=== PATIENT | male | born 1990 | race Caucasian/White ===

== ENCOUNTER 2016-10-15 13:15 | Emergency (ER) | payer SELFPAY ==
[~2016-10-15] VITALS: Ht 188 cm; Wt 127.0 kg
--- NOTE | 2016-10-15 15:32 | ED Back Pain ---
General Chief Complaint: Back Problems Stated Complaint: LOW BACK PAIN Nursing Triage Note: PT C/O INTERMITTENT SHARP LEFT LOW BACK PAIN X 1.5MONTHS. Nursing Sepsis Screen: No Definite Risk Source of Information: Patient Exam Limitations: No Limitations History of Present Illness Time Seen by Provider: 15:30 Initial Comments 26 yo male patient presents to the ED with c/o intermittent sharp pains in the left low back for the last 1.5 months. Patient reports episodes only last a few seconds. Denies numbness, tingling, abdominal pain, dysuria, frequency, hematuria. 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 Denies known injury. States he did have to see a chiropractor back home for low back pain. Denies pain being related to movement or activity. Location: Paraspinous Muscles (left low back ) Timing/Duration: Intermittent (intermittent and sharp), Other (1.5 mo) Pain/Injury Location: Back Radiation: Other (denies radiation) Method of Injury: Unknown Modifying Factors: Improves With Other (pain last only a few seconds and is self-limited.) Associated Symptoms: muscle spasmsNo fever, No weakness, No numbness in legs/ feet, No tingling in legs/feet, No sensory/motor loss, lower back painNo loss of bladder control, No loss of bowel control Allergies and Home Medications Allergies Coded Allergies: No Known Drug Allergies (Unverified , 10/15/16) Home Medications Cyclobenzaprine HCl 10 Mg Tablet #14 10 MG PO Q8H PRN PRN SPASMS Prescribed by: ROJELIO COELHO on 10/15/16 1548 Prednisone 20 Mg Tab #10 40 MG PO DAILY Prescribed by: ROJELIO COELHO on 10/15/16 1548 Constitutional: No chills, No fever, No malaise Respiratory: no symptoms reported Cardiovascular: no symptoms reported Gastrointestinal: No abdominal pain, No constipation, No diarrhea, No nausea, No vomiting Genitourinary: No decreased output, No dysuria, No frequency, No hematuria, No pain Musculoskeletal: see HPI back pain muscle pain Skin: no symptoms reported Psychiatric/Neurological: Denies Numbness, Denies Paresthesia, Denies Tingling , Denies Weakness All Other Systems Reviewed Negative Unless Noted: Yes (Negative excepted noted.) Past Xvdhpop-Lezlgp-Zrdldv Hx Patient Social History Alcohol Use: Rarely Uses Recreational Drug Use: Yes Drug of Choice: PAST DRUG USE Smoking Status: Former Smoker Type Used: Cigarettes Recent Foreign Travel: No Contact w/Someone Who Travel: No Recent Infectious Disease Expo: No Recent Hopitalizations: No Seasonal Allergies Seasonal Allergies: No Surgeries HX Surgeries: Yes Surgeries: Appendectomy Respiratory Hx Respiratory Disorders: No Cardiovascular Hx Cardiac Disorders: No Neurological Hx Neurological Disorders: No Genitourinary Hx Genitourinary Disorders: No Gastrointestinal Hx Gastrointestinal Disorders: No HEENT HX ENT Disorders: No Reviewed Nursing Assessment Reviewed/Agree w Nursing PMH: Yes Family Medical History Significant Family History: No Pertinent Family Hx Physical Exam Vital Signs Vital Sign - Last 12Hours 10/15/16 13:57 Temp 98.9 Pulse 62 Resp 16 B/P 156/87 Capillary Refill : Less Than 3 Seconds General Appearance: No Apparent Distress WD/WN Cardiovascular: Regular Rate, Rhythm No Murmur Normal Peripheral Pulses Respiratory: Lungs Clear Normal Breath Sounds No Respiratory Distress Back: No CVA Tenderness No Vertebral TendernessNo Decreased Range of Motion, Muscle Spasm (left low back in the L4-L5 location with mild ttp over the muscle. ) Extremity: Normal Capillary Refill Normal Inspection Normal Range of Motion Non Tender Neurologic/Psychiatric: Alert Oriented x3 No Motor/Sensory Deficits Normal Mood/Affect Skin: Normal Color Warm/Dry Progress/Results/Core Measures Results/Orders Vital Signs/I&O Vital Sign - Last 12Hours 10/15/16 13:57 Temp 98.9 Pulse 62 Resp 16 B/P 156/87 Blood Pressure Mean: 110 Departure Communication Progress Notes Patient seen and evaluated. Plan for discharge to home with oral prednisone and cyclobenzaprine. Patient instructed to use Tylenol and ibuprofen over-the- counter for pain. Impression Impression: Primary Impression: Strain of muscle, fascia and tendon of lower back, initial encounter Disposition: HOME, SELF-CARE Condition: Improved Departure-Patient Inst. Decision time for Depature: 15:47 Referrals: NO,LOCAL PHYSICIAN (PCP) Primary Care Physician Patient Instructions: Lumbar Muscle Strain (DC) Add. Discharge Instructions: All discharge instructions reviewed with patient and/or family. Voiced understanding. Medications as instructed. Tylenol extra strength over-the- counter as directed for pain. Ibuprofen 800 mg by mouth every 8 hours as needed for pain. Ice packs or heating pads as needed for pain and muscle spasm. Consider seeing her chiropractor choice for recheck and adjustment. Consider massage therapy. Follow-up with your family practitioner of choice or [facility] for recheck if no improvement in symptoms in 7-10 days. Return to the emergency department for worsened pain, numbness, weakness , bowel incontinence, bladder incontinence, or any other concerns. Scripts Cyclobenzaprine HCl 10 Mg [id number] Mg PO Q8H PRN SPASMS #14 TAB Ref 0 Prov:ROJELIO COELHO 10/15/16 Prednisone 20 Mg Tab40 Mg PO DAILY #10 TAB Ref 0 Prov:ROJELIO COELHO 10/15/16 Work/School Note: [employer] ROJELIO COELHO Oct 15, 2016 15:32
[2016-10-15] MEDS ORDERED: PRD20T PO (15:48)
[2016-10-15] MEDS ORDERED: CYCL10TA9 PO (15:48)
[2016-10-15 16:00] VITALS: BP 156/87
== END 2016-10-15 16:04 | disposition home or self-care (01) ==
LOC: ER 13:18
DX: S39.012A Strain of muscle, fascia and tendon of lower back, initial encounter (principal); X58.XXXA Exposure to other specified factors, initial encounter; Y99.8 Other external cause status
CPT/HCPCS: 99281

== ENCOUNTER 2016-11-21 21:56 | Emergency (ER) | payer SELFPAY ==
[~2016-11-21] VITALS: Ht 182.9 cm; Wt 149.7 kg
[~2016-11-21 21:56] MED LIST: CYCL10TA9 PO; PRD20T PO
[2016-11-21] MEDS ORDERED: PANTOPRAZOLE 40 MG/10 ML (PROTONIX) VIAL IV ONE (22:15)
--- NOTE | 2016-11-21 22:21 | ED GI ---
General Chief Complaint: Abdominal/GI Problems Stated Complaint: STOMACH PAIN/BURNING/CHEST PAIN Nursing Triage Note: PT TO ED 6 FOR C/O BURNING SENSATION TO ABD ET CHEST X2WKS, WORSE TONIGHT. REPORTS WAS SEEN AT [facility] FOR C/O, WAS PRESCRIBED ZANTAC BUT DENIES IMPROVEMENT Sepsis Screen: No Definite Risk Source of Information: Patient History of Present Illness Time Seen By Provider: 22:05 Initial Comments C/O EPIGASTRIC BURNING X 2 WEEKS--IS CONSTANT, NOTHING WORSENS OR IMPROVES SYMPTOMS C/O ONGOING NAUSEA AND DIARRHEA FOR A COUPLE OF YEARS--WITH CERTAIN FOODS NO FEVER NO VOMITING SEEN AT [facility] 4 DAYS AGO AND GIVEN RX FOR ZANTAC STATES THE LAST 2 DAYS THE BURNING IS NOW IN HIS CHEST WELL HAD SIMILAR A COUPLE OF YEARS AGO AND WAS SEEN AT AN ER IN [place], TESTS ALL REPORTEDLY NORMAL AND NO RX GIVEN. PT DID NOT FOLLOW UP WITH ANYONE PT STATES HE HAS TESTED + FOR HEPATITIS B AND C, BUT WAS BEING RETESTED AND DOES NOT HAVE THOSE RESULTS BACK YET. PCP: [facility] Allergies and Home Medications Allergies Coded Allergies: No Known Drug Allergies (Unverified , 10/15/16) Home Medications Cyclobenzaprine HCl 10 Mg Tablet, 10 MG PO Q8H PRN for SPASMS, #14 Ref 0 Prescribed by: ROJELIO COELHO on 10/15/16 1548 Pantoprazole Sodium 40 Mg Tablet.dr, 40 MG PO DAILY, #15 Prescribed by: AMY RUVALCABA on 11/21/167 Prednisone 20 Mg Tab, 40 MG PO DAILY, #10 Ref 0 Prescribed by: ROJELIO COELHO on 10/15/16 1548 Sucralfate 1 Gm/10 Ml Oral.susp, 1 GM PO QID AC AND HS, #400 Prescribed by: AMY RUVALCABA on 11/21/16 2317 Review of Systems Constitutional: no symptoms reported Respiratory: No Symptoms Reported Cardiovascular: Chest Pain, Denies Edema, Denies Lightheadedness, Denies Palpitations, Denies Syncope Gastrointestinal: See HPI, Abdominal Pain, Diarrhea, Nausea, Denies Poor Appetite, Denies Poor Fluid Intake, Denies Vomiting Genitourinary: No Symptoms Reported Musculoskeletal: no symptoms reported Skin: no symptoms reported Psychiatric/Neurological: No Symptoms Reported Endocrine: No Symptoms Reported Hematologic/Lymphatic: No Symptoms Reported Past Svrkzpc-Xgongf-Cvrppq Hx Patient Social History Alcohol Use: Past History (HISTORY OF MODERATE TO HEAVY USE, STATES NONE X 5 MONTHS, PER PT ON 11/21/16) Recreational Drug Use: Yes (+ IV DRUG USE--"EVERYTHING" --STATES NONE FOR A YEAR, PER PT ON 11/21/16) Drug of Choice: PAST DRUG USE Smoking Status: Former Smoker (1 PPD, QUIT 09/2016) Type Used: Cigarettes Recent Foreign Travel: No Contact w/Someone Who Travel: No Recent Infectious Disease Expo: No Recent Hopitalizations: No Seasonal Allergies Seasonal Allergies: No Surgeries HX Surgeries: Yes Surgeries: Appendectomy Respiratory Hx Respiratory Disorders: No Cardiovascular Hx Cardiac Disorders: Yes Cardiac Disorders: High Cholesterol Neurological Hx Neurological Disorders: No Genitourinary Hx Genitourinary Disorders: No Gastrointestinal Hx Gastrointestinal Disorders: Yes (TESTED + FOR HEPATITIS B AND C) Musculoskeletal Hx Musculoskeletal Disorders: No Endocrine Hx Endocrine Disorders: No HEENT HX ENT Disorders: No Cancer Hx Cancer: No Psychosocial Hx Psychiatric Problems: No Integumentary HX Skin/Integumentary Disorder: No Blood Transfusions Hx Blood Disorders: No Physical Exam Vital Signs VS - Last 72 Hours, by Label 11/21/16 22:00 Temp 97.8 Pulse 72 Resp 20 B/P (MAP) 160/83 Pulse Ox 100 O2 Delivery Room Air Capillary Refill : Less Than 3 Seconds General Appearance: WD/WN, no apparent distress, obese, other (WALKS UPRIGHT AND MOVES WITHOUT DIFFICULTY) HEENT: PERRL/EOMI, No scleral icterus (R), No scleral icterus (L) Neck: normal inspection Respiratory: chest non-tender, normal breath sounds, no respiratory distress, no accessory muscle use Cardiovascular: regular rate, rhythm, no edema, no JVD, no murmur Gastrointestinal: normal bowel sounds, non tender, soft, no organomegaly, no pulsatile mass, No distended, No hernia, No mass Extremities: normal inspection Back: no CVA tenderness Neurologic/Psychiatric: 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 nml as tested, no motor/sensory deficits, alert, normal mood/affect, oriented x 3 Skin: normal color, warm/dry Progress/Results/Core Measures Results/Orders Lab Results Laboratory Tests Test 11/21/16 22:16 11/21/16 22:24 Range/Units Urine Color YELLOW Urine Clarity SLIGHTLY CLOUDY Urine pH 6 5-9 Urine Specific Sloan 1.025 H 1.016-1.022 Urine Protein NEGATIVE NEGATIVE Urine Glucose (UA) NEGATIVE NEGATIVE Urine Ketones NEGATIVE NEGATIVE Urine Nitrite NEGATIVE NEGATIVE Urine Bilirubin NEGATIVE NEGATIVE Urine Urobilinogen NORMAL NORMAL MG/DL Urine Leukocyte Esterase NEGATIVE NEGATIVE Urine RBC (Auto) NEGATIVE NEGATIVE Urine RBC NONE /HPF Urine WBC 0-2 /HPF Urine Crystals NONE /LPF Urine Bacteria NEGATIVE /HPF Urine Casts NONE /LPF Urine Mucus NEGATIVE /LPF Urine Culture Indicated NO Urine Opiates Screen NEGATIVE NEGATIVE Urine Oxycodone Screen NEGATIVE NEGATIVE Urine Methadone Screen NEGATIVE NEGATIVE Urine Propoxyphene Screen NEGATIVE NEGATIVE Urine Barbiturates Screen NEGATIVE NEGATIVE Ur Tricyclic Antidepressants Screen NEGATIVE NEGATIVE Urine Phencyclidine Screen NEGATIVE NEGATIVE Urine Amphetamines Screen NEGATIVE NEGATIVE Urine Methamphetamines Screen NEGATIVE NEGATIVE Urine Benzodiazepines Screen NEGATIVE NEGATIVE Urine Cocaine Screen NEGATIVE NEGATIVE Urine Cannabinoids Screen NEGATIVE NEGATIVE White Blood Count 6.7 4.3-11.0 10^3/uL Red Blood Count 4.97 4.35-5.85 10^6/uL Hemoglobin 14.9 13.3-17.7 G/DL Hematocrit 42 40-54 % Mean Corpuscular Volume 85 80-99 FL Mean Corpuscular Hemoglobin 30 25-34 PG Mean Corpuscular Hemoglobin Concent 35 32-36 G/DL Red Cell Distribution Width 12.6 10.0-14.5 % Platelet Count 185 130-400 10^3/uL Mean Platelet Volume 10.6 H 7.4-10.4 FL Neutrophils (%) (Auto) 59 42-75 % Lymphocytes (%) (Auto) 29 12-44 % Monocytes (%) (Auto) 8 0-12 % Eosinophils (%) (Auto) 2 0-10 % Basophils (%) (Auto) 1 0-10 % Neutrophils # (Auto) 4.0 1.8-7.8 X 10^3 Lymphocytes # (Auto) 2.0 1.0-4.0 X 10^3 Monocytes # (Auto) 0.6 0.0-1.0 X 10^3 Eosinophils # (Auto) 0.2 0.0-0.3 10^3/uL Basophils # (Auto) 0.0 0.0-0.1 10^3/uL Sodium Level 141 135-145 MMOL/L Potassium Level 4.1 3.6-5.0 MMOL/L Chloride Level 108 H 98-107 MMOL/L Carbon Dioxide Level 21 21-32 MMOL/L Anion Gap 12 5-14 MMOL/L Blood Urea Nitrogen 18 7-18 MG/DL Creatinine 0.82 0.60-1.30 MG/DL Estimat Glomerular Filtration Rate > 60 BUN/Creatinine Ratio 22 Glucose Level 106 H 70-105 MG/DL Calcium Level 9.2 8.5-10.1 MG/DL Total Bilirubin 0.5 0.1-1.0 MG/DL Aspartate Amino Transf (AST/SGOT) 22 5-34 U/L Alanine Aminotransferase (ALT/SGPT) 37 0-55 U/L Alkaline Phosphatase 62 40-136 U/L Total Protein 6.6 6.4-8.2 G/DL Albumin 4.4 3.2-4.5 G/DL Amylase Level 59 25-125 U/L Lipase 15 8-78 U/L My Orders Orders - AMY RUVALCABA DO Saline Lock/Iv-Start (11/21/16 22:14) Ct Abdomen/Pelvis W (11/21/16 22:14) Amylase (11/21/16 22:14) Cbc With Automated Diff (11/21/16 22:14) Comprehensive Metabolic Panel (11/21/16 22:14) Drug Screen Stat (Urine) (11/21/16 22:14) Lipase (11/21/16 22:14) Ua Culture If Indicated (11/21/16 22:14) Pantoprazole Injection (Protonix Injecti (11/21/16 22:15) Iohexol Injection (Omnipaque 350 Mg/Ml 1 (11/21/16 23:00) Ns (Ivpb) (Sodium Chloride 0.9% Ivpb Bag (11/21/16 23:00) Medications Given in ED Current Medications Medications Dose Ordered Sig/Jacquie Route Start Time Stop Time Status Last Admin Dose Admin Iohexol 100 ml ONCE ONCE IV 11/21/16 23:00 11/21/16 23:01 DC 11/21/16 22:48 100 ML Pantoprazole 40 mg ONCE ONCE IV 11/21/16 22:15 11/21/16 22:16 DC 11/21/16 22:28 40 MG Sodium Chloride 100 ml ONCE ONCE IV 11/21/16 23:00 11/21/16 23:01 DC 11/21/16 22:48 80 ML Vital Signs/I&O Vital Sign - Last 12Hours 11/21/16 22:00 Temp 97.8 Pulse 72 Resp 20 B/P (MAP) 160/83 Pulse Ox 100 O2 Delivery Room Air Blood Pressure Mean: 108 Diagnostic Imaging Comments ABDOMEN/PELVIS--NO ACUTE PROCESS, PER [facility] VIA FAX @ 3114 Reviewed: Reviewed by Me Departure Impression Impression: Primary Impression: Epigastric abdominal pain Additional Impression: POSSIBLE GERD Disposition: HOME, SELF-CARE Condition: Stable Departure-Patient Inst. Referrals: [facility] (PCP/Family) Primary Care Physician Patient Instructions: Acid Reflux (Gastroesophageal Reflux Disease), Adult (DC) Add. Discharge Instructions: CLEAR LIQUIDS--WATER, BROTH, JELLO, GATORADE BRATS DIET--BANANAS, RICE, APPLESAUCE, TOAST, SALTINES FOLLOW UP WITH [facility] NEXT WEEK FOR FURTHER CARE All discharge instructions reviewed with patient and/or family. Voiced understanding. Scripts Sucralfate (Carafate) 1 Gm/10 Ml Oral.susp 1 GM PO QID AC AND HS, #400 ML Prov: AMY RUVALCABA DO 11/21/16 Pantoprazole Sodium (Protonix) 40 Mg Tablet.dr 40 MG PO DAILY, #15 TAB Prov: AMY RUVALCABA DO 11/21/16 AMY RUVALCABA DO Nov 21, 2016 22:21
[2016-11-21 22:22] LABS: BILIRUBIN,URINE NEGATIVE (NEGATIVE); KETONES,URINE NEGATIVE (NEGATIVE); LEUKOCYTE ESTERASE ,URINE NEGATIVE (NEGATIVE); NITRITE,URINE NEGATIVE (NEGATIVE); PH,URINE 6 (5-9); PROTEIN,URINE NEGATIVE (NEGATIVE); UROBILINOGEN,URINE NORMAL (NORMAL)
[2016-11-21 22:34] LABS: BASOPHILS % (AUTO) 1 % (0-10); EOSINOPHILS # (AUTO) 0.2 10^3/uL (0.0-0.3); EOSINOPHILS % (AUTO) 2 % (0-10); LYMPHOCYTES % (AUTO) 29 % (12-44); MEAN CORPUSCULAR HEMOGLOBIN 30 PG (25-34); MEAN CORPUSCULAR HGB CONC 35 G/DL (32-36); MEAN CORPUSCULAR VOLUME 85 FL (80-99); MEAN PLATELET VOLUME 10.6 FL (7.4-10.4); MONOCYTES # (AUTO) 0.6 X 10^3 (0.0-1.0); MONOCYTES % (AUTO) 8 % (0-12); NEUTROPHILS % (AUTO) 59 % (42-75); PLATELET COUNT 185 10^3/uL (130-400); RED BLOOD COUNT 4.97 10^6/uL (4.35-5.85); RED CELL DISTRIBUTION WIDTH 12.6 % (10.0-14.5); WHITE BLOOD COUNT 6.7 10^3/uL (4.3-11.0)
[2016-11-21 22:37] LABS: WBC,URINE 0-2 /HPF
[2016-11-21 22:50] LABS: ALANINE AMINOTRANSFERASE 37 U/L (0-55); ALBUMIN 4.4 G/DL (3.2-4.5); AMYLASE 59 U/L (25-125); ANION GAP 12 MMOL/L (5-14); ASPARTATE AMINO TRANSFERASE 22 U/L (5-34); BILIRUBIN,TOTAL 0.5 MG/DL (0.1-1.0); BLOOD UREA NITROGEN 18 MG/DL (7-18); BUN/CREATININE RATIO 22; CALCIUM 9.2 MG/DL (8.5-10.1); CARBON DIOXIDE 21 MMOL/L (21-32); CHLORIDE 108 MMOL/L (98-107); CREATININE SERUM 0.82 MG/DL (0.60-1.30); GFR ESTIMATED > 60; GLUCOSE 106 MG/DL (70-105); LIPASE 15 U/L (8-78); POTASSIUM 4.1 MMOL/L (3.6-5.0); SODIUM 141 MMOL/L (135-145); TOTAL PROTEIN 6.6 G/DL (6.4-8.2)
[2016-11-21] MEDS ORDERED: IOHEXOL 350 MG/ML 100 ML (OMNIPAQUE 350) VIAL IV ONE (23:00)
[2016-11-21] MEDS ORDERED: NS 100 ML (IVPB) BAG IV ONE (23:00)
[2016-11-21] MEDS ORDERED: SUCR1ORA5 PO (23:17)
[2016-11-21] MEDS ORDERED: PANT40TA2 PO (23:17)
[2016-11-21 23:25] VITALS: BP 0/0
--- NOTE | 2016-11-22 07:19 | Diagnostic Imaging Report ---
PROCEDURE: CT abdomen and pelvis with contrast. TECHNIQUE: Multiple contiguous axial images were obtained through the abdomen and pelvis after administration of intravenous contrast. INDICATION: Complains of burning sensation in stomach previous appendectomy. Comparison studies: None Contrast: 100 cc Omnipaque 350 was given intravenously. Findings: The lung bases are clear. There is diffuse fatty infiltration of liver with no focal findings. The gallbladder, spleen, pancreas, adrenal glands and kidneys are normal. No hiatal hernia is present. No inflammatory changes are seen around the duodenum. The appendix is absent. The bowel loops appear normal. There is no ascites, free air or abnormal adenopathy. Urinary bladder and prostate gland are normal. No hernias are present. The osseous structures are normal. IMPRESSION: Normal CT scan of the abdomen and pelvis. Dictated by: Dictated on workstation # [id number]
--- OUTSIDE RECORDS SUMMARY | 2016-11-25 05:21 | XMS REPORT | Continuity of Care Document ---
Author Author [facility] Organization [facility] Address Unknown Phone Unavailable Care Team Providers Care Maintainer Plant Name Role Phone PCP Unavailable Source Comments Some departments are not documenting in the electronic medical record. 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
== END 2016-11-21 23:25 | disposition home or self-care (01) ==
LOC: EDUNIT# 21:56 → ER 21:57
DX: R10.13 Epigastric pain (principal); Z87.891 Personal history of nicotine dependence
CPT/HCPCS: 36415; 74177; 80053; 80306; 81000; 82150; 83690; 85025; 96365

== ENCOUNTER → 2016-12-01 | Emergency (ER) | payer SELFPAY ==
[~2016-12-01] VITALS: Ht 188 cm; Wt 149.7 kg
[~2016-12-01] MED LIST changes: +PANT40TA2 PO; +SUCR1ORA5 PO
--- NOTE | 2016-12-01 09:37 | ED EENT ---
History of Present Illness General Chief Complaint: Dental Problems/Pain Stated Complaint: BOTTOM LEFT TOOTH PAIN Nursing Triage Note: AMB TO ROOM WITH C/O TOOTH ACHE Source: patient Exam Limitations: no limitations History of Present Illness Time seen by provider: 09:32 Initial Comments This 26-year-old male presents with dental caries. Patient has several areas of discomfort from fractured teeth and lost fillings. However his greatest discomfort is from impacted wisdom tooth in the lower left mandible. The patient is scheduled to see [facility] dentistry in 2 weeks. Patient denies associated fever, chills, stiff neck, difficulty swallowing, associated headache or facial swelling. Patient's pain is sharp in nature and rather severe. Patient is able to tolerate penicillin and has done well with Ultram for pain in the past. Allergies and Home Medications Allergies Coded Allergies: No Known Drug Allergies (Unverified , 10/15/16) Home Medications Cyclobenzaprine HCl 10 Mg Tablet, 10 MG PO Q8H PRN for SPASMS, #14 Ref 0 Prescribed by: ROJELIO COELHO on 10/15/16 1548 Pantoprazole Sodium 40 Mg Tablet.dr, 40 MG PO DAILY, #15 Prescribed by: AMY RUVALCABA on 11/21/16 2317 Sucralfate 1 Gm/10 Ml Oral.susp, 1 GM PO QID AC AND HS, #400 Prescribed by: AMY RUVALCABA on 11/21/167 Review of Systems Constitutional: No chills, No fever Eyes: Denies Blurred Vision Ears: Denies Dizziness Nose: denies epistaxis Mouth: other (impacted wisdom tooth left mandible.) Throat: denies pain, denies swelling, denies hoarse Respiratory: No cough Cardiovascular: No chest pain Gastrointestinal: No abdominal pain Musculoskeletal: No back pain Skin: No change in color Neurological: Denies Anxiety, Denies Depressed Hematologic/Lymphatic: No Symptoms Reported Past Hkaudkk-Zgcjks-Jafjev Hx Patient Social History Alcohol Use: Denies Use Recreational Drug Use: No Drug of Choice: PAST DRUG USE Smoking Status: Never a Smoker Type Used: Cigarettes 2nd Hand Smoke Exposure: No Recent Foreign Travel: No Contact w/Someone Who Travel: No Recent Infectious Disease Expo: No Recent Hopitalizations: No Seasonal Allergies Seasonal Allergies: No Surgeries HX Surgeries: Yes Surgeries: Appendectomy Respiratory Hx Respiratory Disorders: No Cardiovascular Hx Cardiac Disorders: Yes Cardiac Disorders: High Cholesterol Neurological Hx Neurological Disorders: No Genitourinary Hx Genitourinary Disorders: No Gastrointestinal Hx Gastrointestinal Disorders: Yes (TESTED + FOR HEPATITIS B AND C) Musculoskeletal Hx Musculoskeletal Disorders: No Endocrine Hx Endocrine Disorders: No HEENT HX ENT Disorders: No Cancer Hx Cancer: No Psychosocial Hx Psychiatric Problems: No Integumentary HX Skin/Integumentary Disorder: No Blood Transfusions Hx Blood Disorders: No Reviewed Nursing Assessment Reviewed/Agree w Nursing PMH: Yes Physical Exam Vital Signs Vital Sign - Last 12Hours 12/01/16 08:51 Temp 96.6 Pulse 68 Resp 18 B/P (MAP) 139/100 General Appearance: WD/WN, no apparent distress Eyes: bilateral eye normal inspection Ears: bilateral ear auricle normal Nose: normal inspection Mouth/Throat: normal mouth inspection, other (there is impacted left mandibular wisdom tooth. The patient's right maxillary third molar is fractured. There is a filling that is missing.) Neck: non-tender, full range of motion, supple Cardiovascular: normal peripheral pulses Respiratory: chest non-tender, lungs clear Gastrointestinal: normal bowel sounds, non tender Neurologic/Psychiatric: no motor/sensory deficits, oriented x 3 Skin: normal color, warm/dry Progress/Results/Core Measures Results/Orders Vital Signs/I&O Vital Sign - Last 12Hours 12/01/16 08:51 Temp 96.6 Pulse 68 Resp 18 B/P (MAP) 139/100 Blood Pressure Mean: 113 Departure Impression Impression: Primary Impression: Dental caries Disposition: 01 HOME, SELF-CARE Condition: Unchanged Departure-Patient Inst. Decision time for Depature: 09:37 Referrals: [facility] (PCP/Family) Primary Care Physician Patient Instructions: Dental Pain (DC) Add. Discharge Instructions: Pen VK and Ultram as prescribed. Close follow-up with [facility] dentistry on Saturday. Return if any problems or questions. All discharge instructions reviewed with patient and/or family. Voiced understanding. SABINA SCHMITZ MD Dec 01, 2016 09:37
[2016-12-01 10:25] VITALS: BP 139/100
--- OUTSIDE RECORDS SUMMARY | 2016-12-25 09:12 | XMS REPORT | Continuity of Care Document ---
Author Author [facility] Organization [facility] Address Unknown Phone Unavailable Care Team Providers Care Assistant Director Of Financial Aid Name Role Phone PCP Unavailable Source Comments Some departments are not documenting in the electronic medical record. 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
== END | disposition home or self-care (01) ==
LOC: EDUNIT# 08:42 → ER 08:43
DX: K02.9 Dental caries, unspecified (principal)
CPT/HCPCS: 99282

== ENCOUNTER 2017-06-14 09:12 | Emergency (ER) | payer OTHER ==
[~2017-06-14] VITALS: Ht 185.4 cm; Wt 136.1 kg
--- NOTE | 2017-06-14 09:37 | ED General ---
General Chief Complaint: Abdominal/GI Problems Stated Complaint: ABD PAIN,JAW PAIN Source of Information: Patient Exam Limitations: No Limitations History of Present Illness Time Seen by Provider: 09:15 Initial Comments Here with report of left-sided abdominal pain and right sided lower jaw pain both of these intermittent. He states the pain in his jaws actually underneath on the and neck. Pain comes and goes and is not significantly impacting him. States more of a minor pain. Has had a history of epigastric pain and reflux type symptoms. Typically is on medicines for that but is not currently on that. States that he knows that he needs to get back on it. Does have appointment with clinic next week but was concerned so presented here for further evaluation. Denies problems with eating or drinking. Denies dysuria, diarrhea or bowel problems overall. Timing/Duration: 1 Week, Intermittent Severity: Mild Associated Systoms: No Fever/Chills, No Nausea/Vomiting Allergies and Home Medications Allergies Coded Allergies: No Known Drug Allergies (Unverified , 10/15/16) Constitutional: see HPI, No chills, No fever EENTM: no symptoms reported Respiratory: No short of breath, No wheezing Cardiovascular: no symptoms reported Gastrointestinal: abdominal pain (LLQ), No nausea, No vomiting Genitourinary: no symptoms reported Skin: no symptoms reported Psychiatric/Neurological: No Symptoms Reported Past Fsncbiy-Clcrsh-Cxcyfd Hx Patient Social History Alcohol Use: Denies Use Recreational Drug Use: No Drug of Choice: PAST DRUG USE Smoking Status: Former Smoker Type Used: Cigarettes Former Smoker, Quit: Sep 02, 2016 2nd Hand Smoke Exposure: No Recent Foreign Travel: No Contact w/Someone Who Travel: No Recent Hopitalizations: No Physical Abuse: No Sexual Abuse: No Seasonal Allergies Seasonal Allergies: No Surgeries History of Surgeries: Yes Surgeries: Appendectomy Respiratory History of Respiratory Disorde: No Cardiovascular History of Cardiac Disorders: Yes Cardiac Disorders: High Cholesterol Neurological History of Neurological Disord: No Gastrointestinal History of Gastrointestinal Di: Yes Gastrointestinal Disorders: Gastroesophageal Reflux Psychosocial Suicide Risk Score: 0 Reviewed Nursing Assessment Reviewed/Agree w Nursing PMH: Yes Physical Exam Vital Signs Vital Sign - Last 12Hours 06/14/17 09:20 Temp 97.0 Pulse 93 Resp 18 B/P (MAP) 177/95 Pulse Ox 99 Capillary Refill : General Appearance: No Apparent Distress, WD/WN HEENT: PERRL/EOMI, Pharynx Normal Neck: Normal Inspection, Non Tender, Supple, No Lymphadenopathy (L), No Lymphadenopathy (R) Respiratory: Lungs Clear, Normal Breath Sounds Cardiovascular: Regular Rate, Rhythm, No Murmur Gastrointestinal: Non Tender, Soft Back: Normal Inspection, No CVA Tenderness, No Vertebral Tenderness Neurologic/Psychiatric: Alert, Oriented x3 Skin: Normal Color, Warm/Dry Progress/Results/Core Measures Results/Orders Lab Results Laboratory Tests Test 06/14/17 09:55 Range/Units White Blood Count 7.9 4.3-11.0 10^3/uL Red Blood Count 4.97 4.35-5.85 10^6/uL Hemoglobin 14.0 13.3-17.7 G/DL Hematocrit 41 40-54 % Mean Corpuscular Volume 83 80-99 FL Mean Corpuscular Hemoglobin 28 25-34 PG Mean Corpuscular Hemoglobin Concent 34 32-36 G/DL Red Cell Distribution Width 13.0 10.0-14.5 % Platelet Count 185 130-400 10^3/uL Mean Platelet Volume 11.3 H 7.4-10.4 FL Neutrophils (%) (Auto) 62 42-75 % Lymphocytes (%) (Auto) 27 12-44 % Monocytes (%) (Auto) 8 0-12 % Eosinophils (%) (Auto) 2 0-10 % Basophils (%) (Auto) 1 0-10 % Neutrophils # (Auto) 4.9 1.8-7.8 X 10^3 Lymphocytes # (Auto) 2.2 1.0-4.0 X 10^3 Monocytes # (Auto) 0.6 0.0-1.0 X 10^3 Eosinophils # (Auto) 0.2 0.0-0.3 10^3/uL Basophils # (Auto) 0.0 0.0-0.1 10^3/uL Urine Color YELLOW Urine Clarity CLEAR Urine pH 6 5-9 Urine Specific [place] 1.025 H 1.016-1.022 Urine Protein 1+ H NEGATIVE Urine Glucose (UA) NEGATIVE NEGATIVE Urine Ketones NEGATIVE NEGATIVE Urine Nitrite NEGATIVE NEGATIVE Urine Bilirubin NEGATIVE NEGATIVE Urine Urobilinogen NORMAL NORMAL MG/DL Urine Leukocyte Esterase NEGATIVE NEGATIVE Urine RBC (Auto) NEGATIVE NEGATIVE Urine RBC NONE /HPF Urine WBC 0-2 /HPF Urine Squamous Epithelial Cells 0-2 /HPF Urine Crystals NONE /LPF Urine Bacteria NEGATIVE /HPF Urine Casts NONE /LPF Urine Mucus SMALL H /LPF Urine Culture Indicated NO Sodium Level 140 135-145 MMOL/L Potassium Level 4.0 3.6-5.0 MMOL/L Chloride Level 106 98-107 MMOL/L Carbon Dioxide Level 23 21-32 MMOL/L Anion Gap 11 5-14 MMOL/L Blood Urea Nitrogen 18 7-18 MG/DL Creatinine 0.88 0.60-1.30 MG/DL Estimat Glomerular Filtration Rate > 60 BUN/Creatinine Ratio 20 Glucose Level 94 70-105 MG/DL Calcium Level 9.2 8.5-10.1 MG/DL Total Bilirubin 0.5 0.1-1.0 MG/DL Aspartate Amino Transf (AST/SGOT) 25 5-34 U/L Alanine Aminotransferase (ALT/SGPT) 38 0-55 U/L Alkaline Phosphatase 67 40-136 U/L Total Protein 6.7 6.4-8.2 GM/DL Albumin 4.3 3.2-4.5 GM/DL Lipase 13 8-78 U/L Monoscreen NEGATIVE NEGATIVE My Orders Orders - JASON PEDRO MD Cbc With Automated Diff (06/14/17 09:25) Comprehensive Metabolic Panel (06/14/17 09:25) Lipase (06/14/17 09:25) Monotest (06/14/17 09:25) Ua Culture If Indicated (06/14/17 09:25) Vital Signs/I&O Vital Sign - Last 12Hours 06/14/17 09:20 Temp 97.0 Pulse 93 Resp 18 B/P (MAP) 177/95 Pulse Ox 99 Progress Note : Progress Note Seen and evaluated. Labs and UA ordered. Monitor patient. No significant pain currently so no pain medicines. 1039: No acute findings. Discharged home with return precautions. Patient verbalize understanding instructions and agreement with plan. Departure Impression Impression: Primary Impression: Left sided abdominal pain Disposition: HOME, SELF-CARE Condition: Stable Departure-Patient Inst. Decision time for Depature: 10:40 Referrals: [facility] (PCP/Family) Primary Care Physician Patient Instructions: Acute Abdomen (Belly Pain), Adult (DC) Add. Discharge Instructions: All discharge instructions reviewed with patient and/or family. Voiced understanding. You may take omeprazole 20 mg daily and discuss further prescriptions with your Dr. next week at your appointment. Take other medications as prescribed. Drink plenty of fluids. Keep scheduled appointment next week. Return for worse pain, fever, vomiting, weakness, breathing problems or other concerns as needed. Scripts Sucralfate (Sucralfate) 1 Gm Tablet 1 GM PO TIDAC, #30 TAB 0 Refills Prov: JASON PEDRO MD 06/14/17 Copy Copies To 1: REZA BOYKIN TIMOTHY D MD Jun 14, 2017 09:37
[2017-06-14 10:06] LABS: BASOPHILS % (AUTO) 1 % (0-10); BILIRUBIN,URINE NEGATIVE (NEGATIVE); EOSINOPHILS # (AUTO) 0.2 10^3/uL (0.0-0.3); EOSINOPHILS % (AUTO) 2 % (0-10); KETONES,URINE NEGATIVE (NEGATIVE); LEUKOCYTE ESTERASE ,URINE NEGATIVE (NEGATIVE); LYMPHOCYTES # (AUTO) 2.2 X 10^3 (1.0-4.0); LYMPHOCYTES % (AUTO) 27 % (12-44); MEAN CORPUSCULAR HEMOGLOBIN 28 PG (25-34); MEAN CORPUSCULAR HGB CONC 34 G/DL (32-36); MEAN CORPUSCULAR VOLUME 83 FL (80-99); MEAN PLATELET VOLUME 11.3 FL (7.4-10.4); MONOCYTES # (AUTO) 0.6 X 10^3 (0.0-1.0); MONOCYTES % (AUTO) 8 % (0-12); NEUTROPHILS # (AUTO) 4.9 X 10^3 (1.8-7.8); NEUTROPHILS % (AUTO) 62 % (42-75); NITRITE,URINE NEGATIVE (NEGATIVE); PH,URINE 6 (5-9); PLATELET COUNT 185 10^3/uL (130-400); PROTEIN,URINE 1+ (NEGATIVE); RED BLOOD COUNT 4.97 10^6/uL (4.35-5.85); UROBILINOGEN,URINE NORMAL (NORMAL); WHITE BLOOD COUNT 7.9 10^3/uL (4.3-11.0)
[2017-06-14 10:14] LABS: SQUAMOUS EPITHELIAL CELL,UR 0-2 /HPF; WBC,URINE 0-2 /HPF
[2017-06-14 10:32] LABS: ALANINE AMINOTRANSFERASE 38 U/L (0-55); ALBUMIN 4.3 GM/DL (3.2-4.5); ANION GAP 11 MMOL/L (5-14); ASPARTATE AMINO TRANSFERASE 25 U/L (5-34); BILIRUBIN,TOTAL 0.5 MG/DL (0.1-1.0); BLOOD UREA NITROGEN 18 MG/DL (7-18); BUN/CREATININE RATIO 20; CALCIUM 9.2 MG/DL (8.5-10.1); CARBON DIOXIDE 23 MMOL/L (21-32); CHLORIDE 106 MMOL/L (98-107); CREATININE SERUM 0.88 MG/DL (0.60-1.30); GFR ESTIMATED > 60; GLUCOSE 94 MG/DL (70-105); LIPASE 13 U/L (8-78); SODIUM 140 MMOL/L (135-145); TOTAL PROTEIN 6.7 GM/DL (6.4-8.2)
[2017-06-14] MEDS ORDERED: SUCR1TAB PO (10:47)
[2017-06-14 10:59] VITALS: BP 177/95
== END 2017-06-14 10:58 | disposition home or self-care (01) ==
LOC: EDUNIT# 09:12 → ER 09:14
DX: R10.9 Unspecified abdominal pain (principal); E78.00 Pure hypercholesterolemia, unspecified; K21.9 Gastro-esophageal reflux disease without esophagitis; Z87.891 Personal history of nicotine dependence; Z90.49 Acquired absence of other specified parts of digestive tract
CPT/HCPCS: 36415; 80053; 81000; 83690; 85025; 86308; 99283

== ENCOUNTER 2018-08-29 14:13 | Emergency (ER) | payer MEDICAID, OTHER ==
[~2018-08-29] VITALS: Ht 185.4 cm; Wt 186.4 kg
[~2018-08-29 14:13] MED LIST changes: +SUCR1TAB PO
[2018-08-29] MEDS ORDERED: CYCL10TA9 (14:43)
--- NOTE | 2018-08-29 14:59 | ED General ---
General Chief Complaint: General Problems/Pain Stated Complaint: KNOT ON NECK;TIGHTNESS Nursing Triage Note: PT HAS A KNOT ON THE BACK OF HIS NECK THAT HAS BEEN THERE FOR A MONTH. WENT TO [facility] WHO TOLD HIM IT WAS A SWOLLEN GLAND AND PUT HIM ON MEDS. PT STATES IT IS NOT BETTER AND HE IS CONCERNED. Nursing Sepsis Screen: No Definite Risk Source of Information: Patient Exam Limitations: No Limitations History of Present Illness Date Seen by Provider: Aug 29, 2018 Time Seen by Provider: 14:56 Initial Comments To ER per private vehicle with reports of a knot at the base of his skull on the right that is tender with some tenderness around this area. He was seen by [facility] last week who told him it was a swollen lymph node put him on Flexeril and naproxen. Denies any improvement. Denies any fevers chills or lesions or sores on his scalp. He has no other lymph nodes in axilla or ankle region that he is noted. No other lymph nodes in the neck that he is noted. This is tender to palpation. He denies fevers or chills. Denies sore throat. Timing/Duration: Other (1 month) Severity: Moderate Allergies and Home Medications Allergies Coded Allergies: No Known Drug Allergies (Unverified , 10/15/16) Patient Home Medication List Home Medication List Reviewed: Yes Review of Systems Review of Systems Constitutional: see HPI EENTM: see HPI Respiratory: no symptoms reported Cardiovascular: no symptoms reported Genitourinary: no symptoms reported Musculoskeletal: see HPI Skin: see HPI Psychiatric/Neurological: No Symptoms Reported Hematologic/Lymphatic: No Symptoms Reported Immunological/Allergic: no symptoms reported Past Uwrqzgt-Wfjrjy-[place]utt Hx Patient Social History Alcohol Use: Denies Use Recreational Drug Use: No Drug of Choice: PAST DRUG USE Smoking Status: Never a Smoker Type Used: Cigarettes Former Smoker, Quit: Sep 02, 2016 2nd Hand Smoke Exposure: No Recent Foreign Travel: No Contact w/Someone Who Travel: No Recent Infectious Disease Expo: No Recent Hopitalizations: No Seasonal Allergies Seasonal Allergies: No Past Medical History Surgeries: Yes Appendectomy Respiratory: No Cardiac: Yes High Cholesterol Neurological: No Gastrointestinal: Yes Gastroesophageal Reflux Musculoskeletal: No Endocrine: No Cancer: No Psychosocial: No Integumentary: No Blood Disorders: No Physical Exam Vital Signs Vital Signs - First Documented 08/29/18 14:30 Temp 99.5 Pulse 90 Resp 16 B/P (MAP) 183/103 (129) Pulse Ox 98 O2 Delivery Room Air Capillary Refill : Less Than 3 Seconds Height, Weight, BMI Height: 6'1.00" Weight: 411lbs. oz. 186.668735ba; BMI Method:Stated General Appearance: No Apparent Distress, WD/WN, Obese Eyes: Bilateral Eye Normal Inspection, Bilateral Eye PERRL HEENT: PERRL/EOMI, TMs Normal, Other (there is a palpable right occipital lymph node about 1 cm mobile and tender. No overlying erythema of the skin, no additional posterior cervical, occipital or anterior cervical chain lymph nodes. No axillary palpable lymph nodes.) Neck: Full Range of Motion, Normal Inspection Respiratory: No Accessory Muscle Use Gastrointestinal: Non Tender, Soft Extremity: Normal Capillary Refill, Normal Inspection Neurologic/Psychiatric: Alert, Oriented x3 Skin: Normal Color, Warm/Dry Progress/Results/Core Measures Suspected Sepsis Recent Fever Within 48 Hours: No Infection Criteria Present: None New/Unexplained Altered Menta: No Sepsis Screen: No Definite Risk SIRS Temperature:99.5 Pulse: 90 Respiratory Rate: 16 Blood Pressure 183 /103 Mean: 129 Results/Orders My Orders Orders - MAURIIZO BEACH APRN Dexamethasone Injection (Decadron Inject (08/29/18 15:00) Vital Signs/I&O 08/29/18 14:30 Temp 99.5 Pulse 90 Resp 16 B/P (MAP) 183/103 (129) Pulse Ox 98 O2 Delivery Room Air Capillary Refill : Less Than 3 Seconds Blood Pressure Mean: 129 Departure Impression Primary Impression: Occipital lymphadenitis Disposition: 01 HOME, SELF-CARE Condition: Stable Departure-Patient Inst. Decision time for Depature: 14:58 Referrals: [facility] (PCP/Family) Primary Care Physician RODRIGO MAGUIRE BRETT D DO JENKINS, XAVIER M MD KIDO, TAKAAKI MD Patient Instructions: LYMPH NODE SWELLING Add. Discharge Instructions: 1. If no improvement after 3-4 days, call one of the surgeons listed to discuss a biopsy of this. Return to ER for any concerns in the meantime. You may continue taking the medication prescribed by [facility] if this did help the pain. All discharge instructions reviewed with patient and/or family. Voiced understanding. MAURIZIO BEACH APRN Aug 29, 2018 14:59
[2018-08-29] MEDS ORDERED: DEXAMETHASONE 10 MG/ML (DECADRON) 1 ML VIAL IM ONE (15:00)
[2018-08-29 15:12] VITALS: BP 183/103
== END 2018-08-29 15:14 | disposition home or self-care (01) ==
LOC: EDUNIT# 14:13 → ER 14:14
DX: I88.9 Nonspecific lymphadenitis, unspecified (principal); E78.00 Pure hypercholesterolemia, unspecified; K21.9 Gastro-esophageal reflux disease without esophagitis; Z87.891 Personal history of nicotine dependence; Z90.49 Acquired absence of other specified parts of digestive tract
CPT/HCPCS: 99284